=== PATIENT | female | born 1980 ===

== ENCOUNTER 2017-02-26 10:35 | Day surgery (SDC) | payer MEDICAID ==
[2017-02-17 11:59] VITALS: BMI 27.9
[2017-02-26 11:10] LABS: BASO # 0.1 K/uL (0.0-0.2); BASO % 1.3 % (0.0-2.0); EOS # 0.1 K/uL (0.0-0.7); EOS % 0.9 % (0.0-4.0); HEMATOCRIT 37.7 % (34.0-47.0); LYMPH # 1.8 K/uL (1.0-4.3); LYMPH % 29.4 % (20.0-40.0); MEAN CELL VOLUME 85.3 fl (81.0-99.0); MEAN CORPUSCULAR HEMOGLOBIN 28.5 pg (27.0-31.0); MEAN CORPUSCULAR HGB CONC 33.4 g/dL (33.0-37.0); MONO # 0.5 K/uL (0.0-0.8); MONO % 8.4 % (0.0-10.0); NEUT # 3.7 K/uL (1.8-7.0); NRBC % 0.1 % (0.0-0.0); RED CELL DISTRIBUTION WIDTH 14.1 % (11.5-14.5); WHITE BLOOD COUNT 6.2 K/uL (4.8-10.8)
[2017-02-26] MEDS ORDERED: Bupivacaine 0.5% Inj(30mL) ONE (11:40)
[2017-02-26] MEDS ORDERED: Lidocaine 2% w Epi 1:100,000 Inj IJ ONE (11:40)
[2017-02-26] MEDS ORDERED: Lidocaine 1% Inj (20ml) ONE (11:40)
[2017-02-26] MEDS ORDERED: Midazolam 2 MG/2 ML VIAL ONE ×2 (11:48→13:15)
[2017-02-26] MEDS ORDERED: Propofol 10 mg/ml Inj (20 ML) ONE ×2 (11:48→12:51)
[2017-02-26] MEDS ORDERED: Succinylcholine 200 mg/10 ml Inj IV ONE ×2 (11:49→13:16)
[2017-02-26] MEDS ORDERED: ePHEDrine 50 mg/ml Inj ONE ×2 (11:49→13:15)
[2017-02-26] MEDS ORDERED: Rocuronium 10 mg/ml (5 ml) ONE (12:21)
[2017-02-26] MEDS ORDERED: Lactated Ringer's 1,000 ML IV ONE ×2 (12:25)
[2017-02-26] MEDS ORDERED: Dexamethasone 4 mg/1 ml ONE ×2 (12:43→13:59)
[2017-02-26] MEDS ORDERED: Lactated Ringer's 1,000 ML IV SCH (13:12)
[2017-02-26] MEDS ORDERED: HYDROmorphone 0.5 mg/0.5 ml ISec IVP PRN (13:12)
--- NOTE | 2017-02-26 13:24 | PCM.SURG1 ---
Surgeon's Initial Post Op Note - Surgeon's Notes Surgeon: Dr. Lenz Delivery Architect: Dr. Gillespie PGY-1 Type of Anesthesia: General Endo Pre-Operative Diagnosis: large lipoma in left flank Operative Findings: see operative report Post-Operative Diagnosis: see operative report Operation Performed: excision of lipoma in left flank Specimen/Specimens Removed: large lipoma Estimated Blood Loss: EBL {In ML}: 5 Blood Products Given: N/A Drains Used: No Drains Post-Op Condition: Good Date of Surgery/Procedure: 02/26/17 Time of Surgery/Procedure: 12:30
[2017-02-26 14:56] VITALS: RESP 18; O2SAT 99
[2017-02-26 16:04] VITALS: BP 98/51; PULSE 88; TEMP 97.8
--- NOTE | 2017-02-27 17:50 | CP.SDSHP ---
Same Day Surgery H & P - Allergies Allergies: Allergies No Known Allergies Allergy (Verified 04/04/15 22:24) Short Stay Discharge - Short Stay Discharge Admitting Diagnosis/Reason for Visit: D17.9 Disposition: HOME/ ROUTINE Medications: oxyCODONE/Acetaminophen [Percocet 5/325 mg Tab] 5 - 325 mg PO Q4 PRN #7 PRN Reason: Pain, Moderate (4-7) Referrals: FAMILY PROVIDER,NO [Primary Care Provider] - Follow-up: one week Additional Instructions (Diet, Activity): may remove dressing in 2 days and shower Progress Note/Discharge Note with Instructions: Dressing dry and intact, no swelling. Stable postop
--- NOTE | 2017-02-27 19:14 | OP ---
PROCEDURE DATE: 02/26/2017 SURGEON: Dr. Lenz. AUDIOVISUAL AIDS TECHNICIAN: Dr. Gillespie. ANESTHESIA: General, Dr. Ogden. PREOPERATIVE DIAGNOSIS: Large lipoma, left flank. POSTOPERATIVE DIAGNOSIS: Large lipoma, left flank. PROCEDURE: Excision of lipoma, left flank. DESCRIPTION OF OPERATION: With the patient in a left side up lateral position under adequate general anesthesia, the left lower chest and upper abdomen were prepped and draped in the usual sterile barbosa er. The patient was noted to have a 5 x 7 inch soft ovoid mass visible along the lower costal margin on the left side and an oblique incision was made overlying this mass with the length of approximate ly 4 inches. The incision was deepened down through the subcutaneous tissue until what appeared to b e lipomatous fat was identified. At this point, there was noted to be bulging soft yellow tissue con sistent with lipoma. Using primarily blunt dissection, the mass was freed from the superficial and d eep planes and pressure was delivered into the wound. Minimal attachment was identified and filmy ad hesions were divided with cautery. The operative site was examined for hemostasis and closure was pe rformed with running subcuticular suture of 4-0 Monocryl and Steri-Strips. Dry sterile dressing was applied. The patient tolerated the procedure well and transferred to the recovery room in stable con dition. Estimated blood loss for the procedure was 5 mL. Jonnathan Lenz MD cc: 58 TT: 02/27/2017 19:13:52 jn
== END 2017-02-26 17:38 | disposition home or self-care (01) ==
LOC: H.OPSURG 10:35
PROVIDERS: ATTEND Specialist
DX: D17.1 Benign lipomatous neoplasm of skin and subcutaneous tissue of trunk (principal)

== ENCOUNTER 2018-02-13 21:32 | Emergency (ER) | payer MEDICAID ==
[2018-02-13 21:53] VITALS: BMI 25.0
[2018-02-13 21:56] VITALS: TEMP 98.2
[2018-02-13 22:11] VITALS: RESP 16
[2018-02-13] MEDS ORDERED: Albuterol 0.083% Inhal Sol (2.5 mg/3 mL) UD INH STA (22:40)
[2018-02-13] MEDS ORDERED: Albuterol 0.083% Inhal Sol (2.5 mg/3 mL) UD ONE (22:45)
--- NOTE | 2018-02-13 22:49 | ED PDOC ---
History of Present Illness History of Present Illness: 37 year old female presents for evaluation of 3 day history of cough, body aches , headache, vomiting and diarrhea. Initially began with cough day 1. Day 2 began with nausea, vomiting x 4, diarrhea x 2, body aches last night. This morning continued to have cough, worried about walking pneumonia. No fever or chills. No history of asthma. She was able to tolerate water today. No nausea at present. No sick contacts. PMD: Dr. Da Silva <Brett Alvarez - Last Filed: 02/13/18 23:42> HPI: Influenza History Per: Patient Symptoms include: headache, bodyaches, cough, vomiting, diarrhea. denies: fever , difficulty breathing, rash, blurry vision Sick Contacts (Context): None <Brett Alvarez - Last Filed: 02/13/18 23:42> <Marlon Arredondo - Last Filed: 02/13/18 23:48> Chief Complaint: Cough, Cold, Congestion Past Medical History Vital Signs: Last Vital Signs Temp 98.2 F 02/13/18 22:09 Pulse 92 H 02/13/18 22:09 Resp 16 02/13/18 22:09 BP 108/76 02/13/18 22:09 Pulse Ox 99 02/13/18 22:09 - Medical History PMH: Anemia Denies: Chronic Kidney Disease - Surgical History Surgical History: No Surg Hx - Family History Family History: States: Unknown Family Hx <Brett Alvarez - Last Filed: 02/13/18 23:42> Vital Signs: Last Vital Signs Temp 98.2 F 02/13/18 22:09 Pulse 92 H 02/13/18 22:09 Resp 16 02/13/18 22:09 BP 108/76 02/13/18 22:09 Pulse Ox 99 02/13/18 23:44 <Marlon Arredondo - Last Filed: 02/13/18 23:48> - Home Medications Home Medications: Ambulatory Orders Medication Instructions Recorded Multivitamin/Iron/Folic Acid 1 tab PO DAILY 02/26/17 [Daily Multivitamin-Iron Tablet] oxyCODONE/Acetaminophen [Percocet 5 - 325 mg PO Q4 PRN #7 02/27/17 5/325 mg Tab] Albuterol HFA [Ventolin HFA 90 2 puff IH Q6H PRN #1 puff 02/13/18 mcg/actuation (8 g)] Benzonatate 100 mg PO Q8 #10 capsule 02/13/18 predniSONE [predniSONE Tab] 40 mg PO DAILY #3 tab 02/13/18 - Allergies Allergies/Adverse Reactions: Allergies Allergy/AdvReac Type Severity Reaction Status Date / Time No Known Allergies Allergy Verified 04/04/15 22:24 Review of Systems Constitutional: Negative for: Fever, Chills, Sweats Eyes: Negative for: Vision Change ENT: Positive for: Throat Pain. Negative for: Throat Swelling Cardiovascular: Negative for: Chest Pain, Palpitations Respiratory: Positive for: Cough. Negative for: Shortness of Breath, SOB with Exertion, Wheezing Gastrointestinal: Positive for: Nausea, Vomiting, Diarrhea. Negative for: Abdominal Pain Genitourinary Female: Negative for: Dysuria, Frequency, Incontinence, Hematuria <Brett Alvarez - Last Filed: 02/13/18 23:42> Physical Exam - Physical Exam Appears: Positive for: Non-toxic, No Acute Distress Head Exam: Positive for: ATRAUMATIC, NORMAL INSPECTION, NORMOCEPHALIC Skin: Positive for: Normal Color, Warm, DRY Eye Exam: Positive for: EOMI, Normal appearance, PERRL ENT: Positive for: Normal ENT Inspection, Pharynx Is (clear), TM Is/Are (+Light reflex bilaterally, no effusions/bulging/erythema), Other (enlarged tonsills). Negative for: Tonsillar Exudate Neck: Positive for: Painless ROM (mild tenderness right neck, +LAD) Cardiovascular/Chest: Positive for: Regular Rate, Rhythm Respiratory: Positive for: Decreased Breath Sounds (cough with inspiration). Negative for: Wheezing, Respiratory Distress Gastrointestinal/Abdominal: Positive for: Normal Exam, Soft. 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 Likely due to viral infection, acute bronchitis --CXR --Albuterol x 1 --Prednisone 40mg case d/w Dr. Arredondo <Brett Alvarez - Last Filed: 02/13/18 23:42> Disposition <Brett Alvarez - Last Filed: 02/13/18 23:42> - Patient ED Disposition Is Patient to be Admitted: No - Disposition Disposition: Routine/Home Disposition Time: 23:48 <Marlon Arredondo - Last Filed: 02/13/18 23:48> - Clinical Impression Clinical Impression: Bronchitis - Disposition Referrals: Cori Hinojosa [place] [Outside] Condition: FAIR Additional Instructions: Follow up with PCP in 2-3 Days. Prescriptions: Albuterol HFA [Ventolin HFA 90 mcg/actuation (8 g)] 2 puff IH Q6H PRN #1 puff PRN Reason: Shortness Of Breath Benzonatate 100 mg PO Q8 #10 capsule predniSONE [predniSONE Tab] 40 mg PO DAILY #3 tab Instructions: Acute Bronchitis, Adult (DC) Forms: [facility] (Nigerian) Attending/Attestation - Attestation I have personally seen and examined this patient.: Yes I have fully participated in the care of the patient.: Yes I have reviewed all pertinent clinical information: Yes <Marlon Arredondo - Last Filed: 02/13/18 23:48>
[2018-02-14 00:03] VITALS: BP 102/61; PULSE 85; O2SAT 100
--- NOTE | 2018-02-14 09:21 | RAD ---
PROCEDURE: CHEST RADIOGRAPH, 1 VIEW HISTORY: cough COMPARISON: COMPARISON IS MADE WITH 04/04/2015 FINDINGS: LUNGS: Clear. PLEURA: No pneumothorax or pleural fluid seen. CARDIOVASCULAR: Normal. OSSEOUS STRUCTURES: No significant abnormalities. VISUALIZED UPPER ABDOMEN: Normal. OTHER FINDINGS: None. IMPRESSION: No active disease.
== END 2018-02-14 00:04 | disposition home or self-care (01) ==
LOC: H.ER 21:32
DX: J40 Bronchitis, not specified as acute or chronic (principal)

== ENCOUNTER 2018-09-11 00:28 | Emergency (ER) | payer MEDICAID ==
[2018-09-11 00:43] VITALS: BMI 26.3
[2018-09-11 00:51] VITALS: RESP 18; TEMP 98.2; O2SAT 100
[2018-09-11] MEDS ORDERED: Sodium Chloride 0.9% 1,000 ML IV STA (01:12)
[2018-09-11 01:48] LABS: BASO # 0.1 K/uL (0.0-0.2); BASO % 0.6 % (0.0-2.0); EOS # 0.1 K/uL (0.0-0.7); EOS % 0.7 % (0.0-4.0); HEMOGLOBIN 12.3 g/dL (12.0-16.0); LYMPH # 1.8 K/uL (1.0-4.3); LYMPH % 19.7 % (20.0-40.0); MEAN CELL VOLUME 86.8 fl (81.0-99.0); MEAN CORPUSCULAR HEMOGLOBIN 28.3 pg (27.0-31.0); MEAN CORPUSCULAR HGB CONC 32.6 g/dL (33.0-37.0); MEAN PLATELET VOLUME 9.2 fl (7.2-11.7); MONO # 0.7 K/uL (0.0-0.8); MONO % 8.2 % (0.0-10.0); NEUT # 6.4 K/uL (1.8-7.0); NEUT % 70.8 % (50.0-75.0); RBC 4.33 Mil/uL (3.80-5.20); RED CELL DISTRIBUTION WIDTH 14.6 % (11.5-14.5); WHITE BLOOD COUNT 9.1 K/uL (4.8-10.8)
[2018-09-11 01:55] LABS: SQUAMOUS EPITHIAL 2 /hpf (0-5); URINE BACTERIA RARE (<OCC); URINE BILIRUBIN NEGATIVE (NEGATIVE); URINE BLOOD NEGATIVE (NEGATIVE); URINE CALCIUM OXALATE CRYSTALS MOD /hpf (<OCC); URINE CLARITY CLOUDY (Clear); URINE COLOR YELLOW (YELLOW); URINE GLUCOSE (UA) NEG (NEGATIVE); URINE LEUKOCYTE ESTERASE NEG Leu/uL (Negative); URINE PROTEIN NEGATIVE (NEGATIVE); URINE UROBILINOGEN 0.2-1.0 mg/dL (0.2-1.0)
[2018-09-11 02:05] LABS: BLOOD UREA NITROGEN 11 mg/dl (7-17); CALCIUM 9.4 mg/dL (8.4-10.2); GFR NON-AFRICAN AMERICAN > 60
--- NOTE | 2018-09-11 02:14 | ED PDOC ---
HPI: Abdomen Time Seen by Provider: 09/11/18 01:10 Chief Complaint (Nursing): Female Genitourinary Chief Complaint (Provider): Female Genitourinary History Per: Patient History/Exam Limitations: no limitations Onset/Duration Of Symptoms: Sudden Onset Location Of Pain/Discomfort: RLQ Associated Symptoms: denies: Urinary Symptoms (vaginal bleeding or discharge) Additional Complaint(s): 38 y/o female, who is 8 weeks , presents to ER for evaluation of sudden onset right lower quadrant pain radiating to right flank towards the umbilicus. Patient reports she had an appointment with Dr. Jean on , when UA showed a sign of UTI but was never diagnosed with it. She reports she has been on a 3 days course antibiotics that she completed but cannot remember the name of it. Patient states she had a previous full term as well as one previous elective termination. She reports on , US showed fibroids but no other abnormalities. Patient denies any vaginal bleeding or discharge. PMD: Kota Kumar OB-SUPER[employer]: David Jean Past Medical History Reviewed: Historical Data, Nursing Documentation, Vital Signs Vital Signs: Last Vital Signs Temp 98.2 F 09/11/18 00:46 Pulse 73 09/11/18 00:46 Resp 18 09/11/18 00:46 BP 110/76 09/11/18 00:46 Pulse Ox 100 09/11/18 00:46 WENDY Report Viewed: Yes - Medical History PMH: Anemia Denies: Chronic Kidney Disease - Surgical History Surgical History: No Surg Hx - Family History Family History: States: Unknown Family Hx - Social History Current smoker - smoking cessation education provided: No Alcohol: None Drugs: Denies - Home Medications Home Medications: Ambulatory Orders Medication Instructions Recorded RX: Multivitamin/Iron/Folic Acid 1 tab PO DAILY 02/26/17 [Daily Multivitamin-Iron Tablet] RX: oxyCODONE/Acetaminophen 5 - 325 mg PO Q4 PRN #7 02/27/17 [Percocet 5/325 mg Tab] RX: Albuterol HFA [Ventolin HFA 90 2 puff IH Q6H PRN #1 puff 02/13/18 mcg/actuation (8 g)] RX: Benzonatate 100 mg PO Q8 #10 capsule 02/13/18 RX: predniSONE [predniSONE Tab] 40 mg PO DAILY #3 tab 02/13/18 - Allergies Allergies/Adverse Reactions: Allergies Allergy/AdvReac Type Severity Reaction Status Date / Time No Known Allergies Allergy Verified 09/11/18 00:43 Review of Systems ROS Statement: Except As Marked, All Systems Reviewed And Found Negative Gastrointestinal: Positive for: Abdominal Pain (RLQ) Genitourinary Female: Negative for: Vaginal Discharge, Vaginal Bleeding Physical Exam - Reviewed Nursing Documentation Reviewed: Yes Vital Signs Reviewed: Yes - Physical Exam Appears: Positive for: Non-toxic, No Acute Distress Head Exam: Positive for: ATRAUMATIC, NORMOCEPHALIC Skin: Positive for: Normal Color, Warm, Dry Neck: Positive for: Normal, Painless ROM, Supple Cardiovascular/Chest: Positive for: Regular Rate, Rhythm. Negative for: Murmur Respiratory: Positive for: Normal Breath Sounds. Negative for: Wheezing Gastrointestinal/Abdominal: Positive for: Tenderness (RLQ). Negative for: Guarding, Rebound Back: Positive for: R CVA Tenderness Extremity: Positive for: Normal ROM. Negative for: Pedal Edema, Deformity Neurologic/Psych: Positive for: Alert, Oriented (x3) - Laboratory Results Result Diagrams: 09/11/18 01:30 09/11/18 01:30 - ECG O2 Sat by Pulse Oximetry: 100 (RA) Medical Decision Making Medical Decision Making: Time: 0111 A/P: Workup for appendicitis vs. UTI/pyelonephritis vs. complication --Tylenol for pain --Abdomen and OB US ----- Scribe Attestation: Documented by Jacki Morel, acting as a scribe for Mira Bai MD. Provider Scribe Attestation: All medical record entries made by the Scribe were at my direction and personally dictated by me. I have reviewed the chart and agree that the record accurately reflects my personal performance of the history, physical exam, medical decision making, and the department course for this patient. I have also personally directed, reviewed, and agree with the discharge instructions and disposition. Disposition - Clinical Impression Clinical Impression: Abdominal discomfort, Abdominal pain during - Disposition Disposition Time: 05:00 Condition: IMPROVED Additional Instructions: Follow up with women's soccer coach within one week for evaluation of renal stones. Return to the emergency department if symptoms worsen or if new symptoms develop. Increase water intake to prevent dehydration. Instructions: Acute Abdomen (Belly Pain), Adult (DC) Forms: [facility] (Scottish) Print Language: UZBEK
[2018-09-11 05:08] VITALS: BP 102/68; PULSE 72
--- NOTE | 2018-09-11 18:45 | US ---
Date of service: 09/11/2018 HISTORY: 8 wks preg, RLQ pain COMPARISON: None. TECHNIQUE: Sonographic evaluation of the abdomen. FINDINGS: LIVER: Measures 14.3 cm. Normal echogenicity of the liver parenchyma. No mass. No intrahepatic bile duct dilatation. GALLBLADDER: Unremarkable. No gallstones. No sonographic Mckeon sign COMMON BILE DUCT: Measures 2.3 mm. No stones. No dilatation. PANCREAS: Unremarkable as visualized. No mass. No ductal dilatation. RIGHT KIDNEY: Measures 10.9 x 4.4 x 4.5cm. Normal echogenicity. No calculus, mass, or hydronephrosis. LEFT KIDNEY: Measures 12.6 x 5.2 x 4.0 cm. Normal echogenicity. No calculus, mass, or hydronephrosis. SPLEEN: Normal in size and contour. No mass. AORTA: No aneurysmal dilatation. IVC: Unremarkable. OTHER FINDINGS: None. IMPRESSION: Unremarkable abdominal ultrasound.
--- NOTE | 2018-09-11 19:02 | US ---
Date of service: 2018-09-11 02:33:52 HISTORY: Abdominal pain COMPARISON: None available. TECHNIQUE: Transvaginal sonographic evaluation of the pelvis performed. FINDINGS: UTERUS: Uterus measures approximately 12.0 x 7.6 and 7.2 cm.. Multiple fibroids are present the largest posteriorly located measuring 3.3 x 3.7 x 3.0 cm. ENDOMETRIUM: There is a single living intrauterine gestation. Measurements: Gestational sac: MS D = 3.4 cm = 8 weeks 4 days Yolk sac: 0.47 cm pole: CRL = 1.95 cm = 8 weeks 4 days Heart motion: 156 BPM Average ultrasound age: 8 weeks 4 days +/-0 weeks 4 days JOSH based on average ultrasound age: 0804/19/2019 CERVIX: Cervix measures approximately 4.1 cm with trace amount of endocervical fluid RIGHT OVARY: Measures 3.0 x 2.6 x 2.2 cm. No solid mass. Normal flow.. Small cyst less than 2 cm LEFT OVARY: Measures 3.7 x 2.4 x 2.4 cm. No solid mass. Normal flow. Complex cyst measuring 2.2 x 2.3 x 1.9 cm FREE FLUID: No significant free fluid noted. OTHER FINDINGS: None. IMPRESSION: Single living intrauterine gestation estimated at approximately 8 weeks 4 days +/-0 weeks 4 days. Heart rate document at 1:56 BPM. Uterine fibroids. Trace amount of endocervical fluid. Complex left ovarian cyst. Small less than 2 cm right ovarian cyst.
== END 2018-09-11 04:40 | disposition home or self-care (01) ==
LOC: H.ER 00:28
DX: O26.91 Pregnancy related conditions, unspecified, first trimester (principal); R10.2 Pelvic and perineal pain; Z3A.08 8 weeks gestation of pregnancy
CPT/HCPCS: 76700; 76815; 76817; 80048; 81003; 84702; 85025; 96360; 99285; J7030